=== PATIENT | male | born 1960 | race American Indian/Alaskan Native ===

== ENCOUNTER 2018-03-19 06:34 | Day surgery (SDC) | payer BC ==
[2018-03-18 13:13] VITALS: BMI 37.3
[2018-03-19] MEDS ORDERED: Propofol 10 mg/ml Inj (20 ML) ONE ×2 (09:04)
[2018-03-19] MEDS ORDERED: Lactated Ringer's 1,000 ML IV ONE (09:10)
--- NOTE | 2018-03-19 09:12 | CP.SDSHP ---
Same Day Surgery H & P - History Proposed Procedure: EGD/ COLONSCOPY Pre-Op Diagnosis: SEE NOTES - Previous Medical/Surgical History Neuro: Other Misc: Other Pain: 4.Moderate Pain - Allergies Allergies: Allergies No Known Allergies Allergy (Verified 10/22/17 23:45) - Physical Exam General Appearance: N Vital Signs: Vital Signs 03/19/18 03/19/18 07:03 09:08 Temperature 97.2 F L 97.2 F L Pulse Rate 61 61 Respiratory 19 19 Rate Blood Pressure 148/73 148/73 O2 Sat by Pulse 99 99 Oximetry Mental Status: Alert & Oriented x3 Neuro: WNL Heart: WNL Lungs: WNL GI: Other - {Optional Preform as Required} Breast: WNL Abdomen: Other Rectal: Other Integument: WNL : WNL Ortho: Other ENT: WNL - Date & Time Time: 09:12 Short Stay Discharge - Short Stay Discharge Admitting Diagnosis/Reason for Visit: HEMORRHAGE OF ANUS AND RECTUM,FUNCTIONAL DYSPEPSIA Disposition: HOME/ ROUTINE
[2018-03-19] MEDS ORDERED: Belladonna-Phenobarbital PO ONE (10:00)
[2018-03-19 11:26] VITALS: TEMP 98
[2018-03-19 11:27] VITALS: RESP 18
[2018-03-19 11:36] VITALS: BP 120/82; PULSE 60; O2SAT 99
== END 2018-03-19 11:00 | disposition home or self-care (01) ==
LOC: C.ENDO 06:34
PROVIDERS: ATTEND Specialist
DX: K62.5 Hemorrhage of anus and rectum (principal); K52.9 Noninfective gastroenteritis and colitis, unspecified; K58.9 Irritable bowel syndrome, unspecified; K64.8 Other hemorrhoids; K60.2 Anal fissure, unspecified; K44.9 Diaphragmatic hernia without obstruction or gangrene; K29.70 Gastritis, unspecified, without bleeding; K30 Functional dyspepsia
CPT/HCPCS: 43239; 45380; 88305; J2001; J2704; J7120